=== PATIENT | female | born 1980 | race African-American/Black ===

== ENCOUNTER 2018-10-04 16:09 | Emergency (ER) | payer MEDICAID ==
[~2018-10-04] VITALS: Ht 165.1 cm; Wt 57.0 kg
[2018-10-04] MEDS ORDERED: ONDANSETRON HCL 4MG/2ML INJ IV STA (18:31)
[2018-10-04] MEDS ORDERED: MORPHINE SULFATE 4 MG/ML CPJ (NOT FOR IM USE) IV STA (18:31)
[2018-10-04] MEDS ORDERED: SODIUM CHLORIDE 0.9% 1,000 ML IV ONE (18:31)
[2018-10-04 19:19] LABS: BASOPHILS % 0.8 % (0.0-2.0); EOSINOPHILS % 1.9 % (0.0-5.0); HEMATOCRIT. 38.7 % (36.0-48.0); HEMOGLOBIN. 13.2 g/dL (12.0-16.0); LYMPHOCYTES % 34.5 % (20.0-50.0); MEAN CORPUSCULAR HEMOGLOBIN 31.9 pg (28.0-32.0); MEAN CORPUSCULAR VOLUME 93.2 fL (81.0-99.0); MEAN PLATELET VOLUME 7.4 fl (7.4-10.4); MONOCYTES % 7.7 % (2.0-8.0); NEUTROPHILS % 55.1 % (40.0-76.0); PLATELET 307 x1000/uL (130-400); RED BLOOD CELL COUNT 4.15 mill/uL (4.2-5.4); RED CELL DISTRIBUTION WIDTH 13.4 % (11.6-14.6)
[2018-10-04 19:21] LABS: CLARITY URINE CLEAR (CLEAR); COLOR URINE YELLOW (YELLOW); KETONES URINE NEGATIVE (NEGATIVE); LEUKOCYTE ESTERASE URINE NEGATIVE (NEGATIVE); NITRITE URINE NEGATIVE (NEGATIVE); OCCULT BLOOD URINE NEGATIVE (NEGATIVE); PROTEIN URINE NEGATIVE (NEGATIVE); SPECIFIC GRAVITY URINE 1.022 (1.005-1.030); UROBILINOGEN URINE 0.2 E.U./dL (0.2-1.0)
[2018-10-04 19:21] LABS: CHLORIDE 107 mEq/L (98-107)
[2018-10-04 19:23] LABS: PROTHROMBIN TIME 10.7 sec (9.6-11.0)
[2018-10-04 19:33] LABS: *AMPHETAMINES SCREEN URINE NEGATIVE (NEGATIVE); *BARBITURATES SCREEN URINE NEGATIVE (NEGATIVE); *BENZODIAZEPINES SCREEN URINE NEGATIVE (NEGATIVE); *COCAINE SCREEN URINE NEGATIVE (NEGATIVE); METHADONE URINE SCREEN NEGATIVE (NEGATIVE); OPIATES URINE SCREEN NEGATIVE (NEGATIVE); PHENCYCLIDINE URINE SCREEN NEGATIVE (NEGATIVE)
[2018-10-04 19:46] LABS: CANNABINOID URINE SCREEN PRESUMTIVE POSITIVE (NEGATIVE)
[2018-10-04] MEDS ORDERED: KETOROLAC 30MG/ML VIAL IV ONE (21:00)
[2018-10-04 22:16] VITALS: BP 107/66
== END 2018-10-04 22:21 | disposition home or self-care (01) ==
LOC: ER 16:09
DX: R10.30 Lower abdominal pain, unspecified (principal); K59.00 Constipation, unspecified; N83.202 Unspecified ovarian cyst, left side; R51 Headache; F17.210 Nicotine dependence, cigarettes, uncomplicated; F12.90 Cannabis use, unspecified, uncomplicated; Z71.6 Tobacco abuse counseling
CPT/HCPCS: 36415; 74021; 76856; 80053; 80305; 81003; 81025; 83690; 85025; 85610; 96361; 96374; 96375; 99284; 99406; J1885; J2270; J2405; J7030